=== PATIENT | male | born 1995 | race Caucasian/White ===

== ENCOUNTER 2017-08-30 16:06 | Day surgery (SDC) | payer MEDICAID ==
[~2017-08-30] VITALS: Ht 175.3 cm; Wt 81.0 kg
[2017-08-30 16:26] VITALS: BP 101/63
[2017-08-30] MEDS ORDERED: LIDOCAINE 1%, 2ML ONE (16:27)
[2017-08-30] MEDS ORDERED: LACTATED RINGERS 1,000 ML IV SCH (16:34)
[2017-08-30] MEDS ORDERED: PROPOFOL 10 MG/ML, 20ML ONE (16:54)
[2017-08-30] MEDS ORDERED: CEFAZOLIN 1,000 MG ONE (16:54)
[2017-08-30] MEDS ORDERED: LIDOCAINE 1%, 50ML ONE (16:59)
[2017-08-30] MEDS ORDERED: LIDOCAINE 1%, 50ML IM ONE (17:06)
[2017-08-30] MEDS ORDERED: FENTANYL PF 100 MCG/2ML ONE ×2 (17:08→17:42)
[2017-08-30] MEDS ORDERED: OXYcodone 5 MG/5 ML ORAL.SOL UDC ONE (17:42)
[2017-08-30] MEDS ORDERED: ACETAMINOPHEN 650 MG/20.3 ML UDC ONE (17:42)
[2017-08-30] MEDS: FENTANYL PF 100 MCG/2ML IV PRN ×2 (17:45→17:50)
[2017-08-30] MEDS ORDERED: HYDROmorphone 2 MG/ML, 1ML ONE (17:56)
[2017-08-30] MEDS ORDERED: ACETAMINOPHEN 325 MG TABLET PO PRN (18:00)
[2017-08-30] MEDS ORDERED: HYDROmorphone 1 MG/ML, 1ML IV PRN (18:00)
[2017-08-30] MEDS ORDERED: OXYcodone 5 MG/5 ML ORAL.SOL UDC PO PRN (18:00)
== END 2017-08-30 18:50 | disposition home or self-care (01) ==
LOC: OUT 16:06
PROVIDERS: ATTEND Orthopaedic Surgery
DX: Z47.2 Encounter for removal of internal fixation device (principal); F17.210 Nicotine dependence, cigarettes, uncomplicated
CPT/HCPCS: 20680; 73120; 76000; J0690; J1170; J2704; J3010; J3490; J7120

== ENCOUNTER 2019-03-02 16:54 | Emergency (ER) | payer SELFPAY ==
[~2019-03-02] VITALS: Ht 175.3 cm; Wt 84.4 kg
[2019-03-02 16:55] VITALS: BP 108/78
--- NOTE | 2019-03-02 18:39 | NUR ---
called for room, no answer.
--- NOTE | 2019-03-02 18:52 | NUR ---
CALLED FOR ROOM, NO ANSWER.
--- NOTE | 2019-03-02 19:24 | NUR ---
no answer X3
== END 2019-03-02 19:30 | disposition left against medical advice (07) ==
LOC: ED 19:20
DX: R07.9 Chest pain, unspecified (principal); Z53.21 Procedure and treatment not carried out due to patient leaving prior to being seen by health care provider
CPT/HCPCS: 93005